=== PATIENT | female | born 1990 | race Caucasian/White ===

== ENCOUNTER → 2017-06-10 | Outpatient (CLI) | payer OTHER ==
--- NOTE | 2017-06-13 16:20 | EEG Procedure Note ---
EEG Procedure Note Date of Service Jun 13, 2017. Start / End Times Start Time: 2:50 p.m. End Time: 3:10 p.m. Referring Physician Purnima Oseguera, PAC History Presyncope, dizzy spells, evaluate for possible seizures Description This is a 21 electrode EEG with a single channel dedicated to limited EKG. The electrodes were placed in accordance with the International 10-20 system. There is a posterior dominant rhythm of 11 hertz which is symmetrically distributed and attenuates with eye opening. There is a normal anterior to posterior organization. Photic stimulation and hyperventilation are unremarkable. There is no focal slowing. No epileptiform abnormalities observed. Interpretation This EEG reveals a normal appearing background alpha rhythm. Activating procedures including photic stimulation and hyperventilation were unremarkable. No epileptiform abnormalities. Clinical Correlation This is a normal appearing EEG demonstrating the alert state. A normal EEG does not completely exclude a diagnosis of epilepsy. If there is continued concern for a seizure disorder in this patient would consider obtaining an ambulatory EEG.
== END | disposition home or self-care (01) ==
LOC: C.NEUR 14:15
PROVIDERS: ATTEND Physician Assistant
DX: R55 Syncope and collapse (principal)

== ENCOUNTER → 2017-06-10 | Outpatient (CLI) | payer OTHER ==
--- NOTE | 2017-06-10 13:35 | DIAGNOSTIC IMAGING REPORT ---
BRAIN COMBO CLINICAL HISTORY: 26 years-old Female presenting with R55 Pre-syncope R42 Vertigo H53.9 Vision disturbance to dizzy spells since the fall accompanied by visual disturbances, per rn clinical appeals abnormal vasculature. TECHNIQUE: Multisequence, multiplanar MR imaging of the brain was performed before and after the administration of intravenous contrast. IV contrast: 5.5 mL of Gadavist. COMPARISON: None. FINDINGS: Ventricles and sulci normal in size. Brain parenchyma normal in appearance with preserved alvarez-white differentiation. No mass effect or midline shift. No restricted diffusion to suggest acute ischemia. No hemorrhage. No extra-axial fluid collection. T2 skull base flow voids preserved. No abnormal parenchymal enhancement. Bone marrow signal intensity within the calvarium within normal limits. IMPRESSION: 1. No acute intracranial pathology. No abnormal enhancement. Electronically signed by: Dav Reno M.D. 06/10/2017 1:34 PM Dictated Date/Time: 06/10/2017 1:29 PM
== END | disposition home or self-care (01) ==
LOC: C.MRIBC 12:28
PROVIDERS: ATTEND Physician Assistant
DX: H53.9 Unspecified visual disturbance (principal); R55 Syncope and collapse; R42 Dizziness and giddiness